=== PATIENT | female | born 1990 | race Caucasian/White ===

== ENCOUNTER 2019-05-17 01:25 | Observation (INO) | payer OTHER ==
[~2019-05-17] VITALS: Ht 157.5 cm; Wt 99.8 kg
== END 2019-05-17 04:45 | disposition home or self-care (01) ==
LOC: SPU 01:25
PROVIDERS: ADMIT Obstetrics & Gynecology; ATTEND Obstetrics & Gynecology
DX: O62.9 Abnormality of forces of labor, unspecified (principal); Z3A.37 37 weeks gestation of pregnancy
CPT/HCPCS: 81002; G0378

== ENCOUNTER 2019-05-17 06:25 | Inpatient (IN) | payer OTHER ==
[~2019-05-17] VITALS: Ht 157.5 cm; Wt 99.8 kg
[2019-05-17] MEDS ORDERED: LR 1,000 ML IV SCH (07:21)
[2019-05-17] MEDS ORDERED: OXYTOCIN/0.9 % SODIUM CHLORIDE 1,000 ML IV SCH (07:21)
[2019-05-17] MEDS ORDERED: LR 1,000 ML IV ONE (07:21)
[2019-05-17] MEDS ORDERED: TERBUTALINE SULFATE 1 MG/ML VIAL SUBCUT ONE (07:30)
[2019-05-17] MEDS ORDERED: MORPHINE 4 MG/ML INJ. SYRINGE IVP PRN (07:30)
[2019-05-17 08:01] LABS: BASOPHILS % (AUTO) 0.2 % (0.0-2.0); EOSINOPHILS % (AUTO) 0.1 % (0.0-4.0); HEMATOCRIT 37.8 % (36-48); HEMOGLOBIN 13.1 g/dL (12.0-16.0); LYMPHOCYTES # (AUTO) 1.5 K/uL (1.0-5.5); LYMPHOCYTES % (AUTO) 13.5 % (20.5-51.5); MEAN CORPUSCULAR HEMOGLOBIN 33 pg (27-31); MEAN CORPUSCULAR HGB CONC 35 % (32-36); MEAN CORPUSCULAR VOLUME 95 fL (79.0-98.0); MONOCYTES # (AUTO) 0.6 K/uL (0.0-1.0); MONOCYTES % (AUTO) 5.7 % (1.7-9.3); NEUTROPHILS # (AUTO) 8.7 K/uL (1.8-7.7); NEUTROPHILS % (AUTO) 80.5 % (40.0-70.0); PLATELET COUNT (AUTO) 128 K/uL (130-430); RED CELL DISTRIBUTION WIDTH 13.6 % (9.0-15.0); WHITE BLOOD COUNT (AUTO) 10.9 K/uL (4.8-10.8)
[2019-05-17] MEDS ORDERED: MORPHINE SULFATE 10 MG/ML VIAL IVP PRN (08:14)
[2019-05-17] MEDS ORDERED: LR 500 ML IV ONE (08:24)
[2019-05-17] MEDS ORDERED: FENT2mCg/mL-ROPIVA0.2%/NS EPID 200 ML EP SCH (08:30)
[2019-05-17] MEDS ORDERED: fentaNYL CITRATE/PF 100 MCG/2 ML AMP ONE (08:44)
[2019-05-17] MEDS ORDERED: ROPIVACAINE HCL/PF 0.2% 200 ML ONE (08:44)
[2019-05-17 12:23] VITALS: BP_SYST 134
[2019-05-17] MEDS ORDERED: FLU VACC TS2019(65UP)/MF59C/PF 45 MCG/0.5 ML SYRINGE I.M. PRN (12:30)
[2019-05-17] MEDS ORDERED: OXYTOCIN/0.9 % SODIUM CHLORIDE 1,000 ML IV ONE (15:57)
[2019-05-17] MEDS ORDERED: WITCH HAZEL LEAF 1 MED.PAD MED.PAD TP PRN (16:00)
[2019-05-17] MEDS ORDERED: OXYCODONE/ACETAMINOPHEN 5-325 TABLET PO PRN ×2 (16:00)
[2019-05-17] MEDS ORDERED: LANOLIN 7 GM OINT. TP PRN (16:00)
[2019-05-17] MEDS ORDERED: METHYLERGONOVINE MALEATE 0.2 MG TABLET PO PRN (16:00)
[2019-05-17] MEDS ORDERED: DERMOPLAST SPRAY TP PRN (16:00)
[2019-05-17] MEDS ORDERED: DOCUSATE SODIUM 100 MG CAPSULE PO PRN (16:00)
[2019-05-17] MEDS ORDERED: HYDROcodone/ACETAMIN 5-325 MG TAB (NORCO/ VICODIN) PO PRN (16:00)
[2019-05-17] MEDS: IBUPROFEN 600 MG TABLET PO SCH ×2 (17:27→23:44)
[2019-05-17] MEDS ORDERED: TEMAZEPAM 15 MG CAPSULE PO PRN (21:00)
[2019-05-18 07:00] LABS: HEMATOCRIT 33.8 % (36-48); HEMOGLOBIN 11.4 g/dL (12.0-16.0)
[2019-05-18] MEDS: IBUPROFEN 600 MG TABLET PO SCH (12:02)
[2019-05-18] MEDS ORDERED: FLU VACC QS2019-20 36MOS UP/PF 60 MCG/0.5 ML SYRINGE I.M. ONE (16:09)
[2019-05-18] MEDS ORDERED: FLU VACC QS2019-20 36MOS UP/PF 60 MCG/0.5 ML SYRINGE I.M. PRN ×2 (16:15→17:30)
== END 2019-05-18 16:15 | disposition home or self-care (01) | DRG 560 ==
LOC: SPU 06:25
PROVIDERS: ADMIT Obstetrics & Gynecology; ATTEND Obstetrics & Gynecology
PROC: 10D07Z6 Extraction of Products of Conception, Vacuum, Via Natural or Artificial Opening (ICD-10-PCS; principal; 2019-05-17)
PROC: 0HQ9XZZ Repair Perineum Skin, External Approach (ICD-10-PCS; 2019-05-17)
PROC: 3E0R3BZ Introduction of Anesthetic Agent into Spinal Canal, Percutaneous Approach (ICD-10-PCS; 2019-05-17)
PROC: 00HU33Z Insertion of Infusion Device into Spinal Canal, Percutaneous Approach (ICD-10-PCS; 2019-05-17)
DX: O70.0 First degree perineal laceration during delivery (principal); R71.0 Precipitous drop in hematocrit; Z37.0 Single live birth; Z3A.37 37 weeks gestation of pregnancy
CPT/HCPCS: 36415; 81002-TC; 82962; 85018-TC; 85025; 86592; 86886; 86900; 86901; J2270; J2590; J3010; J7120